=== PATIENT | female | born 1990 | race Caucasian/White ===

== ENCOUNTER 2017-01-06 16:03 | Emergency (ER) | payer OTHER ==
[2017-01-06 16:22] VITALS: BP 135/69
== END 2017-01-06 17:50 | disposition home or self-care (01) ==
LOC: ED 16:03
DX: S92.355A Nondisplaced fracture of fifth metatarsal bone, left foot, initial encounter for closed fracture (principal); Y93.39 Activity, other involving climbing, rappelling and jumping off; Y93.89 Activity, other specified; Y99.8 Other external cause status; Y92.89 Other specified places as the place of occurrence of the external cause

== ENCOUNTER 2017-06-19 09:00 | Emergency (ER) | payer OTHER ==
[~2017-06-19] VITALS: Ht 152.4 cm; Wt 80.0 kg
[2017-06-19 09:13] VITALS: Ht 152.4 cm; Wt 80.0 kg
[2017-06-19 10:40] VITALS: BP 135/66
== END 2017-06-19 10:40 | disposition home or self-care (01) ==
LOC: ED 09:00
DX: N39.0 Urinary tract infection, site not specified (principal); R03.0 Elevated blood-pressure reading, without diagnosis of hypertension

== ENCOUNTER 2017-06-19 15:37 | Emergency (ER) | payer OTHER ==
[~2017-06-19] VITALS: Ht 152.4 cm; Wt 79.8 kg
[2017-06-19 15:39] VITALS: Ht 152.4 cm; Wt 79.8 kg
[2017-06-19 16:39] LABS: BASOPHIL % 0.3 % (0-2); PLATELET COUNT 337 x10^3mcL (130-400); RED CELL DISTRIBUTION WIDTH 13.5 % (11.5-14.5)
[2017-06-19 16:59] LABS: CARBON DIOXIDE 28.5 mmol/L (21-32); CHLORIDE SERUM 101 mmol/L (98-107); CREATININE SERUM 0.9 mg/dL (0.6-1.0); GFR1 > 60 mL/min; GLUCOSE SERUM 91 mg/dL (74-106); POTASSIUM SERUM 3.8 mmol/L (3.5-5.1); SODIUM SERUM 140 mmol/L (136-145)
[2017-06-19 17:18] LABS: ALBUMIN 4.3 g/dL (3.4-5.0); ALKALINE PHOSPHATASE 88 U/L (46-116); ALT/SGPT 27 U/L (14-59); AMYLASE 55 U/L (25-115); AST/SGOT 21 U/L (15-37); BILIRUBIN TOTAL 0.1 mg/dL (0.20-1.00); LIPASE 155 IU/L (73-393)
[2017-06-19 17:19] LABS: TOTAL PROTEIN, SERUM 8.5 g/dL (6.4-8.2)
[2017-06-19 18:17] LABS: UA SPECIFIC GRAVITY <=1.005 (1.005-1.035); microscopic required? YES; urine erythrocyte 3+ (NEGATIVE)
[2017-06-19 19:29] VITALS: BP 109/75
== END 2017-06-19 19:29 | disposition home or self-care (01) ==
LOC: ED 15:37
PROVIDERS: Emergency Medicine
DX: N39.0 Urinary tract infection, site not specified (principal); F12.90 Cannabis use, unspecified, uncomplicated
CPT/HCPCS: 83880; J0500; J0696; J1885; J2405; J3490; J7030

== ENCOUNTER 2017-06-24 16:02 | Inpatient (IN) | payer OTHER ==
[~2017-06-24] VITALS: Ht 152.4 cm; Wt 82.5 kg
[2017-06-24 17:36] LABS: BASOPHIL % 0.5 % (0-2); PLATELET COUNT 314 x10^3mcL (130-400); RED CELL DISTRIBUTION WIDTH 13.6 % (11.5-14.5)
[2017-06-24 17:42] LABS: CALCIUM 8.9 mg/dL (8.5-10.1); CARBON DIOXIDE 23.9 mmol/L (21-32); CREATININE SERUM 1.3 mg/dL (0.6-1.0); POTASSIUM SERUM 4.2 mmol/L (3.5-5.1)
[2017-06-24 17:46] LABS: ALBUMIN 3.7 g/dL (3.4-5.0); BILIRUBIN TOTAL 0.25 mg/dL (0.20-1.00)
[2017-06-24 17:58] LABS: UA SPECIFIC GRAVITY 1.015 (1.005-1.035); microscopic required? YES; urine erythrocyte 2+ (NEGATIVE)
[2017-06-24] MEDS ORDERED: PHENAZOPYRIDIN200 M3 PO (18:49)
[2017-06-24] MEDS ORDERED: CIPRO500 MG PO (18:49)
[2017-06-24] MEDS ORDERED: MOT600 PO (18:50)
[2017-06-24 19:47] LABS: T3 TOTAL 1.08 ng/mL
[2017-06-24 19:50] LABS: AMPHETAMINE QUAL UR NONE DETECTED (NEG <=1000)
[2017-06-24 19:55] VITALS: BP 126/71
[2017-06-24 19:57] VITALS: Ht 152.4 cm; Wt 82.5 kg
[2017-06-24 20:27] LABS: CHOLESTEROL/HDL RATIO 2.9; MAGNESIUM 2.4 mg/dL (1.8-2.4); PHOSPHOROUS 3.3 mg/dL (2.5-4.9)
[2017-06-24 20:39] LABS: FREE T4 1.2 ng/dL (0.76-1.46); FREE THYROXINE INDEX 3.6 ug/dL (1.4-4.5); T4(THYROXINE) 10.2 ug/dL (4.7-13.3)
[2017-06-24 20:41] LABS: TOTAL IRON BINDING CAPACITY 355 ug/dL (250-450)
[2017-06-24 20:42] LABS: IRON 30 ug/dL (50-170)
[2017-06-24 21:27] LABS: RED BLOOD CELLS 4.14 M/mm3 (4.10-5.10)
[2017-06-25 06:04] VITALS: BP 107/73
[2017-06-25 06:34] LABS: BASOPHIL % 0.1 % (0-2); PLATELET COUNT 289 x10^3mcL (130-400); RED CELL DISTRIBUTION WIDTH 13.3 % (11.5-14.5)
[2017-06-25 06:35] LABS: CALCIUM 8.4 mg/dL (8.5-10.1); CARBON DIOXIDE 26.5 mmol/L (21-32); CHLORIDE SERUM 105 mmol/L (98-107); CREATININE SERUM 1.1 mg/dL (0.6-1.0); GFR1 > 60 mL/min; GLUCOSE SERUM 85 mg/dL (74-106); MAGNESIUM 2.2 mg/dL (1.8-2.4); PHOSPHOROUS 3.8 mg/dL (2.5-4.9); SODIUM SERUM 138 mmol/L (136-145)
[2017-06-25 09:26] VITALS: BP 103/53
[2017-06-25 16:32] VITALS: BP 120/84
[2017-06-25 21:20] VITALS: BP 107/62
[2017-06-26 05:35] VITALS: BP 102/60
[2017-06-26 07:50] LABS: BASOPHIL % 0.4 % (0-2); PLATELET COUNT 307 x10^3mcL (130-400); RED CELL DISTRIBUTION WIDTH 13.2 % (11.5-14.5)
[2017-06-26 07:52] LABS: CALCIUM 8.6 mg/dL (8.5-10.1); CARBON DIOXIDE 26.1 mmol/L (21-32); CREATININE SERUM 1.4 mg/dL (0.6-1.0); POTASSIUM SERUM 4.5 mmol/L (3.5-5.1)
[2017-06-26 09:00] VITALS: BP 121/61
[2017-06-26] MEDS ORDERED: MAC100 PO (13:30)
[2017-06-26 14:25] VITALS: BP 121/61
[2017-06-26 14:30] VITALS: BP 142/76
[2017-06-26] MEDS ORDERED: LAC PO (16:05)
== END 2017-06-26 15:37 | disposition home or self-care (01) | DRG 465 ==
LOC: ED 16:02 → DU 18:28
PROVIDERS: Emergency Medicine; Family Medicine
DX: N13.2 Hydronephrosis with renal and ureteral calculous obstruction (principal); N17.0 Acute kidney failure with tubular necrosis; N10 Acute pyelonephritis; D64.9 Anemia, unspecified; E87.1 Hypo-osmolality and hyponatremia; F12.90 Cannabis use, unspecified, uncomplicated; Z90.49 Acquired absence of other specified parts of digestive tract
CPT/HCPCS: 83880; 84439; J0696; J1885; J2405; J2916; J7030

== ENCOUNTER 2018-08-18 21:39 | Emergency (ER) | payer OTHER ==
[~2018-08-18] VITALS: Ht 149.9 cm; Wt 77.6 kg
[~2018-08-18 21:39] MED LIST: CIPRO500 MG PO; LAC PO; MAC100 PO; MOT600 PO; PHENAZOPYRIDIN200 M3 PO
[2018-08-18 21:55] VITALS: Ht 149.9 cm; Wt 77.6 kg
[2018-08-19 01:06] VITALS: BP 108/73
== END 2018-08-19 01:06 | disposition home or self-care (01) ==
LOC: ED 21:39
DX: N39.0 Urinary tract infection, site not specified (principal); Z90.89 Acquired absence of other organs

== ENCOUNTER 2018-08-19 17:32 | Emergency (ER) | payer OTHER | END 2018-08-19 21:48 | disposition home or self-care (01) | LOC: ED 17:32 ==